=== PATIENT | female | born 2000 | race Caucasian/White ===

== ENCOUNTER → 2020-04-05 | Outpatient (CLI) | payer BC ==
[~2020-04-05] MED LIST: K-DUR TAB 20 M20 MEQ PO; PROTONIX 40 MG40 M1 PO; ZOFRAN ODT 4 MG4 MG PO
[2020-04-05 15:17] LABS: GAMMA GLUTAMYL TRANSPEPTIDASE 13 U/L (7-64)
== END ==
LOC: LAB 14:15
PROVIDERS: Family Medicine
DX: L70.9 Acne, unspecified (principal)
CPT/HCPCS: 36415; 82465; 82977; 84478

== ENCOUNTER 2020-07-08 05:01 | Emergency (ER) | payer OTHER ==
[2020-07-08 08:47] LABS: HEMOGLOBIN 13.9 gm/dl (12.3-15.3); RED BLOOD COUNT 4.73 M/UL (4.00-5.10); WHITE BLOOD COUNT 9.8 K/UL (4.5-11.0)
[2020-07-08 09:22] LABS: BUN/CREATININE RATIO 10 (0-10)
[2020-07-08] MEDS ORDERED: K-DUR TAB 20 M20 MEQ PO (09:56)
[2020-07-08] MEDS ORDERED: ZOFRAN ODT 4 MG4 MG PO (23:25)
[2020-07-08] MEDS ORDERED: PROTONIX 40 MG40 M1 PO (23:25)
== END 2020-07-08 10:41 | disposition home or self-care (01) ==
LOC: ER1 05:01
PROVIDERS: Emergency Medicine
DX: E87.6 Hypokalemia (principal); R10.13 Epigastric pain; R11.2 Nausea with vomiting, unspecified
CPT/HCPCS: 80053; 81001; 83690; 84703; 85025; C9113; J2405

== ENCOUNTER 2020-07-08 18:59 | Emergency (ER) | payer OTHER ==
[~2020-07-08 18:59] MED LIST changes: -PROTONIX 40 MG40 M1 PO; -ZOFRAN ODT 4 MG4 MG PO
[2020-07-08 19:29] LABS: HEMOGLOBIN 14.2 gm/dl (12.3-15.3); RED BLOOD COUNT 4.78 M/UL (4.00-5.10); WHITE BLOOD COUNT 9.3 K/UL (4.5-11.0)
[2020-07-08 19:56] LABS: BUN/CREATININE RATIO 11 (0-10)
[2020-07-08] MEDS ORDERED: PROTONIX 40 MG40 M1 PO (23:25)
[2020-07-08] MEDS ORDERED: ZOFRAN ODT 4 MG4 MG PO (23:25)
== END 2020-07-09 00:05 | disposition home or self-care (01) ==
LOC: ER1 18:59
PROVIDERS: Physician Assistant
DX: K29.70 Gastritis, unspecified, without bleeding (principal); K21.9 Gastro-esophageal reflux disease without esophagitis
CPT/HCPCS: 80053; 81001; 83690; 84703; 85025; 96374; 96375; 99284; C9113; J2405; Q9967

== ENCOUNTER 2021-02-11 16:55 | Emergency (ER) | payer OTHER ==
[~2021-02-11 16:55] MED LIST changes: +PROTONIX 40 MG40 M1 PO; +ZOFRAN ODT 4 MG4 MG PO
== END 2021-02-11 20:03 | disposition home or self-care (01) ==
LOC: ER1 16:55
DX: U07.1 COVID-19 (principal); Z23 Encounter for immunization
CPT/HCPCS: 71045; 99283; M0245